=== PATIENT | male | born 2005 | race Caucasian/White ===

== ENCOUNTER 2023-05-25 18:04 | Emergency (ER) | payer OTHER, SELFPAY ==
[2023-05-25 18:05] VITALS: BP 134/89; PULSE 72; RESP 16; TEMP 35.9; O2SAT 99; BMI 19.4
--- NOTE | 2023-05-25 18:16 | RAD_ITS ---
INDICATION: Trauma, injury EXAMINATION/TECHNIQUE: X-RAY - RIGHT XR Hand Min 3 Views 3 VIEWS COMPARISON: None. FINDINGS: SOFT TISSUES: Mild soft tissue irregularity over the third distal phalanx. No radiopaque foreign body. BONES/JOINTS: Mildly displaced cortical avulsion fracture at the medial aspect of the third distal tuft. Joint spaces anatomically aligned. RAD/Hand Min 3 Views IMPRESSION: Cortical avulsion fracture from the third distal tuft. Electronically Signed: Davidson Mann MD at 18:57 EDT ,
--- NOTE | 2023-05-25 19:04 | ED.RN ---
multiple calls made to Florentino at [facility] for drug testing. no answer.
--- NOTE | 2023-05-25 19:59 | EX.ED.UPPERE ---
HPI <REI Mckeon - Last Filed: 05/25/23 20:54> History of Present Illness Chief Complaint: Upper Extremity Injury Narrative Narrative: 18-year-old [id number] male presents with right hand injury. 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 It smashed his third and fourth fingers causing a laceration. Bleeding is controlled. No weakness or paresthesias. Last tetanus unknown. PFSH <REI Mckeon - Last Filed: 05/25/23 20:54> PFSH Home Medications cephalexin 500 mg capsule 500 mg PO BID 7 days #14 caps 05/25/23 [Rx Last Taken Unknown] hydrocodone-acetaminophen 5-325mg 5mg-325mg 1 tab PO Q6H PRN PRN Pain 3 days #10 TABLETS 05/25/23 [Rx Last Taken Unknown] Allergy/AdvReac Type Severity Reaction Status Date / Time No Known Allergies Allergy Verified 05/25/23 18:05 Social History Smoking Status: Current every day smoker tobacco type: e-cigarettes ROS <REI Mckeon - Last Filed: 05/25/23 20:54> ROS ED ROS Narrative Neuro: Negative for motor/sensory dysfunction. Skin: Positive for wound. Musc: Positive for finger pain, swelling, trauma. Heme: Negative for easy bruising, bleeding, lymphadenopathy. EXAM <REI Mckeon - Last Filed: 05/25/23 20:54> Physical Exam Narrative Exam Narrative: CONST: Patient sitting in no acute distress. EYES: Normal inspection. NECK: Normal inspection. SKIN: Color normal, no rash, warm, dry, intact. EXTREMITIES: Left middle finger has a 1 cm linear horizontal laceration 5 mm proximal to the cuticle with exposed nail matrix. No subungual hematoma. Tenderness of the third distal phalanx, otherwise wrist and hand nontender, normal motor and sensory function of median radial ulnar distributions, 2+ radial pulse and brisk cap refill. NEURO: Oriented x4. PSYCH: Normal affect. Const Vital Signs: 05/25/23 18:05 Temperature 96.7 F L Temperature Source Temporal Pulse Rate 72 Respiratory Rate 16 Blood Pressure 134/89 H Blood Pressure Mean 104 Pulse Ox 99 Oxygen Delivery Method Room Air MDM <REI Mckeon - Last Filed: 05/25/23 20:54> [facility] Narrative Medical decision making narrative: Procedure note: Right middle finger digital block with 1% lidocaine. Nail was removed and finger thoroughly cleansed with soap and water and irrigated with sterile saline. Was prepped and draped in sterile condition. I placed 2 simple interrupted sutures of 5-0 Vicryl to repair the nailbed and then the nail was replaced and wound dressed. He was given tetanus and first dose of Keflex here and instructions to follow-up with orthopedics for reevaluation. He was given workplace restrictions for limited use of right arm in the meantime was advised to take OTC pain relievers. He was discharged in stable condition. ED attending interpretation right hand x-ray shows small right distal third phalanx tuft fracture I have personally performed a face to face assessment of the patient and have reviewed the BOB Note. I performed a substantive portion of the visit including all aspects of the following. My kendall findings include: History is [patient presents to the emergency department with complaint of injury to his right long finger that occurred prior to arrival in the emergency department. 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 Patient is right-hand dominant. Patient unsure of his last tetanus shot.] Exam is [HEENT-PERRLA, EOMI. Cranial nerves II through XII grossly intact. TMs clear. Mucous membranes moist. No adenopathy. Cardiovascular-regular rate and rhythm without murmur or ectopy Lungs-clear to auscultation, chest wall stable without crepitus or subcu emphysema Abdomen-normoactive bowel sounds, soft, nontender, no rebound or rigidity, no peritoneal signs. Extremities-intact ?4. Right hand-patient right long finger noted to have trauma to the distal phalanx with nail avulsed from the nail fold and what looks like a superficial laceration proximal to the nail. He he has somewhat diminished range of motion in flexion at the DIP joint secondary to pain. Neurovascular intact.] Medical Decison Making [x-rays of the right hand obtained interpreted by myself as small tuft fracture of the distal phalanx of the long finger. Radiology in agreement. Patient will have a digital block performed and will have the nail removed so that we can replace the nail underneath the nail fold and evaluate the nailbed. Patient seen in conjunction with physician office manager executive assistant. Other additions or changes: [None] Radiography Diagnostic Testing: Clinical Impression(s) from Imaging Studies Hand X-Ray 05/25/23 18:16 IMPRESSION: Cortical avulsion fracture from the third distal tuft. Electronically Signed: Davidson Mann MD at 18:57 EDT , <Dr. Tara Rao, DO - Last Filed: 05/25/23 23:17> [facility] Narrative Medical decision making narrative: I have personally performed a face to face assessment of the patient and have reviewed the BOB Note. I performed a substantive portion of the visit including all aspects of the following. My kendall findings include: History is [patient presents to the emergency department with complaint of injury to his right long finger that occurred prior to arrival in the emergency department. 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 Patient is right-hand dominant. Patient unsure of his last tetanus shot.] Exam is [HEENT-PERRLA, EOMI. Cranial nerves II through XII grossly intact. TMs clear. Mucous membranes moist. No adenopathy. Cardiovascular-regular rate and rhythm without murmur or ectopy Lungs-clear to auscultation, chest wall stable without crepitus or subcu emphysema Abdomen-normoactive bowel sounds, soft, nontender, no rebound or rigidity, no peritoneal signs. Extremities-intact ?4. Right hand-patient right long finger noted to have trauma to the distal phalanx with nail avulsed from the nail fold and what looks like a superficial laceration proximal to the nail. He he has somewhat diminished range of motion in flexion at the DIP joint secondary to pain. Neurovascular intact.] Medical Decison Making [x-rays of the right hand obtained interpreted by myself as small tuft fracture of the distal phalanx of the long finger. Radiology in agreement. Patient will have a digital block performed and will have the nail removed so that we can replace the nail underneath the nail fold and evaluate the nailbed. Patient seen in conjunction with physician office manager executive assistant. Other additions or changes: [None] Discharge Plan Triage Chief Complaint: Upper Extremity Injury Other Complaint: Laceration ED Midlevel Provider: Yanci Chapa ED Provider: Tara Rao Dx/Rx/DC Orders Clinical Impression: Open fracture of tuft of distal phalanx of finger, Avulsion of nail Instructions: Suture Care, ED Fracture, Finger, Open Prescriptions: New cephalexin 500 mg capsule 500 mg PO BID 7 Days Qty: 14 0RF hydrocodone-acetaminophen 5-325 mg tablet 1 tab PO Q6H PRN PRN (Reason: Pain) 3 Days Qty: 10 0RF Primary Care Provider: Care Physician,Elva Primary Referrals: Chris Bliss MD [Med Staff - Active Staff] - Lamine Ramirez DO [Med Staff - Active Staff] - NOT,DEFINED [Non-Staff] - Activity Restrictions/Additional Instructions: Keep clean and covered. Follow-up with orthopedics. If symptoms worsen prior to then or you develop signs of infection such as redness, swelling, pus, or fever return to the ER. In addition to the [place] you can take ibuprofen 600 mg every 6 hours as needed for pain Disposition Disposition: Home, Self Care Discharge Date/Time: 05/25/23 21:22
[2023-05-25] MEDS: Diphth,Pertuss(Acell),Tet Vac 0.5 ML Vial IM (20:13)
[2023-05-25] MEDS: Lidocaine 1% (20 ml mdv) 20 ML Vial 10 ML INFILT (20:14)
[2023-05-25] MEDS: Cephalexin 250 MG Capsule 500 MG PO (20:14)
[2023-05-25] MEDS: HYDROcodone Bitartrate/Apap 5/325 Tablet PO (21:17)
[2023-05-25] MEDS: Ondansetron ODT 4 MG Tablet PO (21:17)
== END 2023-05-25 21:22 | disposition home or self-care (01) ==
PROVIDERS: Emergency Provider Emergency Medicine; Visit Provider Emergency Medicine
DX: S62.633B Displaced fracture of distal phalanx of left middle finger, initial encounter for open fracture (principal); W31.89XA Contact with other specified machinery, initial encounter; Y99.0 Civilian activity done for income or pay; Y92.69 Other specified industrial and construction area as the place of occurrence of the external cause; F17.290 Nicotine dependence, other tobacco product, uncomplicated; Z23 Encounter for immunization
CPT/HCPCS: 11760; 73130; 99284